=== PATIENT | female | born 1940 | race Caucasian/White ===

== ENCOUNTER 2023-04-18 20:51 | Inpatient (IN) | payer MEDICARE, BC ==
[~2023-04-18] VITALS: Ht 165.1 cm; Wt 61.3 kg
[2023-04-18] MEDS ORDERED: DEXAMETHASONE SOD PHOSPHATE 4 MG INJ IV ONE (21:15)
[2023-04-18] MEDS ORDERED: IV NORMAL SALINE 1000 ML BAG IV ONE (21:15)
[2023-04-18] MEDS ORDERED: VANCOMYCIN IV 1,000 MG in IV DEXTROSE 5% 250 ML IV ONE (21:15)
[2023-04-18] MEDS ORDERED: CEFTRIAXONE 1 G in IV DEXTROSE 5% 50 ML IV ONE (21:15)
[2023-04-18] MEDS ORDERED: VANCOMYCIN IV 200 ML ONE (21:23)
[2023-04-18] MEDS ORDERED: DEXAMETHASONE SOD PHOSPHATE 4 MG INJ ONE (21:23)
[2023-04-18] MEDS ORDERED: CEFTRIAXONE /D5W 50ML IVPB **ER PYXIS IV ONE (21:23)
[2023-04-18 22:09] LABS: BASOPHILS # (AUTO) 0.1 K/UL (0.0-0.2); DIFFERENTIAL COMMENT 0; RED CELL DISTRIBUTION WIDTH 13.3 % (12.3-17.7)
[2023-04-18 22:14] LABS: BASOPHILS % (AUTO) 0.1 % (0.0-2.0); HEMOGLOBIN 11.1 g/dL (10.9-14.3); LYMPHOCYTES # (AUTO) 0.6 K/uL (0.8-4.8); LYMPHOCYTES % (AUTO) 1.1 % (20.5-51.5); MEAN CORPUSCULAR HEMOGLOBIN 29.8 uug (24.7-32.8); MEAN CORPUSCULAR HGB CONC 33 g/dL (32.3-35.6); MEAN CORPUSCULAR VOLUME 91.3 fL (75.5-95.3); MONOCYTES # (AUTO) 0.5 K/uL (0.1-1.30); MONOCYTES % (AUTO) 0.9 % (0.0-11.0); NEUTROPHILS # (AUTO) 54.8 K/uL (1.8-8.9); NEUTROPHILS % (AUTO) 97.9 % (38.5-71.5); PLATELET COUNT (AUTO) 322 K/uL (179-408); RED BLOOD CELL COUNT(AUTO) 3.73 MIL/uL (3.63-4.92)
[2023-04-18 22:25] LABS: ALANINE AMINOTRANSFERASE 16 U/L (14-59); ALKALINE PHOSPHATASE 140 U/L (50-136); ASPARTATE AMINOTRANSFERASE 21 U/L (15-37); BILIRUBIN,DIRECT 0.4 mg/dL (0.0-0.2); BILIRUBIN,TOTAL 0.7 mg/dL (0.2-1.0); CALCIUM 9.7 mg/dL (8.5-10.1); CARBON DIOXIDE 24 mmol/L (21-32); CHLORIDE 97 mmol/L (98-107); CREATININE 5.9 mg/dL (0.6-1.3); NT-PRO BNP 1924 pg/mL (0-125); POTASSIUM 5.2 mmol/L (3.5-5.1); SODIUM SERUM 133 mmol/L (136-145); TOTAL PROTEIN, SERUM 7.1 g/dL (6.4-8.2)
[2023-04-18] MEDS ORDERED: INSULIN REGULAR, HUMAN 300 UNIT/3 ML VIAL IV ONE (23:30)
[2023-04-18] MEDS ORDERED: SODIUM BICARBONATE 8.4% 50 MEQ/50 ML DISP.SYRIN IV ONE ×2 (23:30→23:31)
[2023-04-18] MEDS ORDERED: DEXTROSE 50% 50 ML DISP.SYRIN IV ONE (23:30)
[2023-04-18] MEDS ORDERED: INSULIN REGULAR, HUMAN 300 UNIT/3 ML VIAL ONE (23:31)
[2023-04-18] MEDS ORDERED: DEXTROSE 50% 50 ML DISP.SYRIN ONE (23:33)
[2023-04-18 23:37] LABS: LYMPHOCYTES % (MANUAL) 1 % (20-40); NEUTROPHILS % (MANUAL) 98 % (42-75); PROMYELOCYTES % 1 %
[2023-04-18 23:38] LABS: ANISOCYTOSIS 1+; PLATELET ESTIMATE ADEQUATE
[2023-04-19 00:08] LABS: *BILIRUBIN,URIN NEGATIVE (NEGATIVE); *BLOOD, URINE 3+ (NEGATIVE); *CLARITY,URINE TURBID (CLEAR); *COLOR,URINE YELLOW (YELLOW); *KETONES,URINE TRACE (NEGATIVE); *PROTEIN,URINE 2+ (NEGATIVE); *UROBILINOGEN,URINE 0.2 E.U./dl (NORMAL); LEUKOCYTE ESTERASE ,URINE 3+ (NEGATIVE); NITRITE, URINE NEGATIVE (NEGATIVE); PH,URINE 5.5 (5.0-8.0); UGLUCOSE NEGATIVE (NEGATIVE)
[2023-04-19] MEDS ORDERED: PRED15SO24 PO (00:09)
[2023-04-19] MEDS ORDERED: PRAV10TA40 PO (00:09)
[2023-04-19] MEDS ORDERED: METO25TA3 PO (00:09)
[2023-04-19] MEDS ORDERED: AMLO1CAP5 PO (00:09)
[2023-04-19] MEDS ORDERED: OXYB5TAB16 PO (00:09)
[2023-04-19] MEDS ORDERED: hydrALAZINE HCL 20 MG/1 ML VIAL IV PRN (00:15)
[2023-04-19] MEDS ORDERED: DEXTROSE 50% 50 ML DISP.SYRIN IV PRN (00:15)
[2023-04-19] MEDS ORDERED: MORPHINE SULFATE 2 MG/1 ML DISP.SYRIN IVP PRN (00:15)
[2023-04-19] MEDS ORDERED: ONDANSETRON 4 MG/2 ML VIAL IV PRN (00:15)
[2023-04-19 00:22] LABS: BACTERIA,URINE MANY /HPF (NONE SEEN); RBC,URINE TNTC /HPF (0-3); WBC,URINE TNTC /HPF (0-3)
[2023-04-19 00:23] LABS: SQUAMOUS EPITHELIAL CELL,UR MODERATE /HPF (NONE SEEN)
[2023-04-19] MEDS ORDERED: DEXTROSE 50% 50 ML DISP.SYRIN ONE (02:24)
[2023-04-19] MEDS ORDERED: DEXTROSE 50% 50 ML DISP.SYRIN IV ONE (02:30)
[2023-04-19 04:50] VITALS: BP 126/68; TEMP 98.4; O2SAT 96
[2023-04-19] MEDS ORDERED: CEFEPIME HCL 2 G in IV DEXTROSE 5% 100 ML IV SCH (06:00)
[2023-04-19] MEDS: BLOOD SUGAR DIAGNOSTIC 1 EACH STRIP VI SCH ×4 (06:43→21:45)
[2023-04-19 08:00] VITALS: BP 114/64; TEMP 97.8; O2SAT 96
[2023-04-19] MEDS: HEPARIN SODIUM,PORCINE 5,000 UNITS/ML VIAL SQ SCH ×2 (09:00→18:50)
[2023-04-19 12:00] VITALS: BP 96/49; TEMP 98.1; O2SAT 98
[2023-04-19] MEDS: CEFEPIME HCL 1 G in IV DEXTROSE 5% 50 ML IV SCH (12:07)
[2023-04-19 12:50] LABS: BASOPHILS # (AUTO) 0.1 K/UL (0.0-0.2); BASOPHILS % (AUTO) 0.2 % (0.0-2.0); HEMATOCRIT 33.2 % (31.2-41.9); HEMOGLOBIN 10.8 g/dL (10.9-14.3); LYMPHOCYTES # (AUTO) 0.5 K/uL (0.8-4.8); LYMPHOCYTES % (AUTO) 0.7 % (20.5-51.5); MEAN CORPUSCULAR HEMOGLOBIN 29.4 uug (24.7-32.8); MEAN CORPUSCULAR HGB CONC 33 g/dL (32.3-35.6); MEAN CORPUSCULAR VOLUME 90.1 fL (75.5-95.3); MONOCYTES # (AUTO) 0.3 K/uL (0.1-1.30); MONOCYTES % (AUTO) 0.5 % (0.0-11.0); NEUTROPHILS # (AUTO) 62.8 K/uL (1.8-8.9); NEUTROPHILS % (AUTO) 98.6 % (38.5-71.5); PLATELET COUNT (AUTO) 287 K/uL (179-408); RED BLOOD CELL COUNT(AUTO) 3.69 MIL/uL (3.63-4.92); RED CELL DISTRIBUTION WIDTH 13.4 % (12.3-17.7)
[2023-04-19 13:10] LABS: ALANINE AMINOTRANSFERASE 13 U/L (14-59); ALBUMIN 1.7 g/dL (3.4-5.0); ALKALINE PHOSPHATASE 132 U/L (50-136); ASPARTATE AMINOTRANSFERASE 18 U/L (15-37); BILIRUBIN,TOTAL 0.6 mg/dL (0.2-1.0); CALCIUM 9.2 mg/dL (8.5-10.1); CARBON DIOXIDE 22 mmol/L (21-32); CHLORIDE 97 mmol/L (98-107); CREATININE 5.7 mg/dL (0.6-1.3); GLUCOSE 136 mg/dL (74-106); MAGNESIUM 2.5 mg/dL (1.8-2.4); PHOSPHOROUS 4.7 mg/dL (2.5-4.9); POTASSIUM 5.5 mmol/L (3.5-5.1); SODIUM SERUM 132 mmol/L (136-145); TOTAL PROTEIN, SERUM 6.7 g/dL (6.4-8.2)
[2023-04-19 13:18] LABS: UREA NITROGEN, BLOOD 82 mg/dL (7-18)
[2023-04-19] MEDS ORDERED: IV NS 1000 ML 1,000 ML IV PRN (13:30)
[2023-04-19 13:36] LABS: CHOLESTEROL 91 mg/dL (<200); HDL CHOLESTEROL 14 mg/dL (40-60); TRIGLYCERIDES 77 MG/DL (30-150)
[2023-04-19] MEDS ORDERED: SODIUM BICARBONATE 8.4% 100 MEQ in IV D5 1/2 NS 1000 ML 1,000 ML IV PRN (13:45)
[2023-04-19] MEDS ORDERED: SODIUM POLYSTYRENE SULFONATE 15 G/60 ML LIQUID UDC PO ONE (13:45)
[2023-04-19 14:17] LABS: DIFFERENTIAL COMMENT 1
[2023-04-19 14:19] LABS: WHITE BLOOD COUNT (AUTO) 63.7 K/uL (3.8-11.8)
[2023-04-19 16:00] VITALS: BP 105/66; TEMP 97.9; O2SAT 95
[2023-04-19 17:40] LABS: CALCIUM 9.1 mg/dL (8.5-10.1); CARBON DIOXIDE 21 mmol/L (21-32); CHLORIDE 98 mmol/L (98-107); CREATININE 5.5 mg/dL (0.6-1.3); GLUCOSE 145 mg/dL (74-106); SODIUM SERUM 131 mmol/L (136-145)
[2023-04-19 17:44] LABS: UREA NITROGEN, BLOOD 85 mg/dL (7-18)
[2023-04-19 18:48] LABS: BAND % (MANUAL) 15 % (0-10); NEUTROPHILS % (MANUAL) 83 % (42-75)
[2023-04-19 18:49] LABS: LYMPHOCYTES % (MANUAL) 1 % (20-40); MONOCYTES % (MANUAL) 1 % (2-10); PLATELET ESTIMATE ADEQUATE
[2023-04-19 20:00] VITALS: BP 112/60; TEMP 97.9
[2023-04-19] MEDS: INSULIN REGULAR, HUMAN 300 UNIT/3 ML VIAL SQ PRN (22:38)
[2023-04-20] VITALS: BP 122/59; TEMP 98.1
[2023-04-20 04:00] VITALS: BP 117/62; TEMP 97.9
[2023-04-20 06:35] LABS: BASOPHILS % (AUTO) 0.1 % (0.0-2.0); HEMATOCRIT 31.3 % (31.2-41.9); HEMOGLOBIN 10.5 g/dL (10.9-14.3); LYMPHOCYTES # (AUTO) 0.5 K/uL (0.8-4.8); LYMPHOCYTES % (AUTO) 1.2 % (20.5-51.5); MEAN CORPUSCULAR HEMOGLOBIN 30.2 uug (24.7-32.8); MEAN CORPUSCULAR HGB CONC 34 g/dL (32.3-35.6); MEAN CORPUSCULAR VOLUME 89.8 fL (75.5-95.3); MONOCYTES # (AUTO) 0.6 K/uL (0.1-1.30); MONOCYTES % (AUTO) 1.7 % (0.0-11.0); NEUTROPHILS # (AUTO) 36.8 K/uL (1.8-8.9); PLATELET COUNT (AUTO) 247 K/uL (179-408); RED BLOOD CELL COUNT(AUTO) 3.48 MIL/uL (3.63-4.92); RED CELL DISTRIBUTION WIDTH 13.3 % (12.3-17.7)
[2023-04-20] MEDS: BLOOD SUGAR DIAGNOSTIC 1 EACH STRIP VI SCH ×2 (06:52→12:38)
[2023-04-20 06:59] LABS: DIFFERENTIAL COMMENT 1
[2023-04-20 07:00] LABS: WHITE BLOOD COUNT (AUTO) 37.9 K/uL (3.8-11.8)
[2023-04-20 07:04] LABS: ALANINE AMINOTRANSFERASE 16 U/L (14-59); ALBUMIN 1.5 g/dL (3.4-5.0); ALKALINE PHOSPHATASE 123 U/L (50-136); ASPARTATE AMINOTRANSFERASE 24 U/L (15-37); BILIRUBIN,TOTAL 0.3 mg/dL (0.2-1.0); CALCIUM 9.2 mg/dL (8.5-10.1); CARBON DIOXIDE 25 mmol/L (21-32); CHLORIDE 100 mmol/L (98-107); CREATINE KINASE, TOTAL 18 U/L (26-192); CREATININE 3.6 mg/dL (0.6-1.3); GLUCOSE 211 mg/dL (74-106); MAGNESIUM 2.6 mg/dL (1.8-2.4); PHOSPHOROUS 4.5 mg/dL (2.5-4.9); POTASSIUM 4.4 mmol/L (3.5-5.1); SODIUM SERUM 135 mmol/L (136-145); TOTAL PROTEIN, SERUM 6.4 g/dL (6.4-8.2); UREA NITROGEN, BLOOD 72 mg/dL (7-18); VANCOMYCIN,RANDOM 13.8 ug/mL (20.0-30.0)
[2023-04-20] MEDS: HEPARIN SODIUM,PORCINE 5,000 UNITS/ML VIAL SQ SCH ×2 (08:37→16:34)
[2023-04-20] MEDS: CEFEPIME HCL 1 G in IV DEXTROSE 5% 50 ML IV SCH (08:38)
[2023-04-20] MEDS: INSULIN REGULAR, HUMAN 300 UNIT/3 ML VIAL SQ PRN ×2 (08:53→12:39)
[2023-04-20] MEDS: PROTEIN SUPPLEMENT (PROSTAT) 30 ML LIQUID PO SCH (09:45)
[2023-04-20] MEDS ORDERED: PRED-170 PO (11:02)
[2023-04-20] MEDS ORDERED: EMPA25TA PO (11:02)
[2023-04-20] MEDS ORDERED: OXYB15TA19 PO (11:02)
[2023-04-20] MEDS ORDERED: GLIM1TAB18 PO (11:02)
[2023-04-20] MEDS ORDERED: PRAV40TA3 PO (11:02)
[2023-04-20] MEDS ORDERED: IRBE1TAB31 PO (11:02)
[2023-04-20] MEDS ORDERED: METO-356 PO (11:02)
[2023-04-20] MEDS ORDERED: AMLO2.5T4 PO (11:02)
[2023-04-20 11:30] VITALS: BP 107/49; TEMP 98.6; O2SAT 96
[2023-04-20 12:39] LABS: PLATELET ESTIMATE ADEQUATE
[2023-04-20 12:42] LABS: BAND % (MANUAL) 2 % (0-10); LYMPHOCYTES % (MANUAL) 4 % (20-40); MONOCYTES % (MANUAL) 3 % (2-10); NEUTROPHILS % (MANUAL) 91 % (42-75)
[2023-04-20] MEDS: IV NS 1000 ML 1,000 ML IV PRN (13:18)
[2023-04-20 16:44] VITALS: BP 126/90; TEMP 98.3; O2SAT 95
[2023-04-20 22:00] VITALS: BP 138/73; TEMP 98.5; O2SAT 94
[2023-04-21] MEDS: IV NS 1000 ML 1,000 ML IV PRN (01:16)
[2023-04-21 04:10] VITALS: BP 124/59; TEMP 98.4; O2SAT 94
[2023-04-21 06:37] LABS: BASOPHILS % (AUTO) 0.1 % (0.0-2.0); HEMATOCRIT 33.2 % (31.2-41.9); LYMPHOCYTES # (AUTO) 0.9 K/uL (0.8-4.8); LYMPHOCYTES % (AUTO) 3.4 % (20.5-51.5); MEAN CORPUSCULAR HEMOGLOBIN 29.9 uug (24.7-32.8); MEAN CORPUSCULAR HGB CONC 33 g/dL (32.3-35.6); MEAN CORPUSCULAR VOLUME 90.4 fL (75.5-95.3); MONOCYTES # (AUTO) 1.3 K/uL (0.1-1.30); MONOCYTES % (AUTO) 4.8 % (0.0-11.0); NEUTROPHILS # (AUTO) 24.7 K/uL (1.8-8.9); NEUTROPHILS % (AUTO) 91.7 % (38.5-71.5); PLATELET COUNT (AUTO) 234 K/uL (179-408); RED BLOOD CELL COUNT(AUTO) 3.67 MIL/uL (3.63-4.92); RED CELL DISTRIBUTION WIDTH 13.1 % (12.3-17.7)
[2023-04-21 06:47] LABS: DIFFERENTIAL COMMENT 1
[2023-04-21 07:24] LABS: CALCIUM 9.2 mg/dL (8.5-10.1); CARBON DIOXIDE 24 mmol/L (21-32); CHLORIDE 106 mmol/L (98-107); CREATININE 1.8 mg/dL (0.6-1.3); GLUCOSE 105 mg/dL (74-106); MAGNESIUM 2.3 mg/dL (1.8-2.4); PHOSPHOROUS 3.8 mg/dL (2.5-4.9); POTASSIUM 4.4 mmol/L (3.5-5.1); SODIUM SERUM 139 mmol/L (136-145); UREA NITROGEN, BLOOD 58 mg/dL (7-18)
[2023-04-21] MEDS: PROTEIN SUPPLEMENT (PROSTAT) 30 ML LIQUID PO SCH (08:00)
[2023-04-21] MEDS: HEPARIN SODIUM,PORCINE 5,000 UNITS/ML VIAL SQ SCH ×2 (09:10→17:10)
[2023-04-21] MEDS: CEFEPIME HCL 1 G in IV DEXTROSE 5% 50 ML IV SCH (10:24)
[2023-04-21 13:46] VITALS: BP 123/70; TEMP 97.3; O2SAT 96
[2023-04-21 15:59] VITALS: BP 132/78; TEMP 97
[2023-04-21 16:03] VITALS: BP 147/67; TEMP 98.6
[2023-04-21] MEDS ORDERED: VANCOMYCIN IV 750 MG in IV DEXTROSE 5% 250 ML IV SCH (16:30)
[2023-04-21] MEDS: GLIMEPIRIDE 2 MG TABLET PO SCH (17:06)
[2023-04-21] MEDS: METOPROLOL SUCCINATE XL 25 MG TAB.SR.24H PO SCH (17:06)
[2023-04-22 00:59] LABS: *BILIRUBIN,URIN NEGATIVE (NEGATIVE); *BLOOD, URINE 3+ (NEGATIVE); *COLOR,URINE YELLOW (YELLOW); *KETONES,URINE NEGATIVE (NEGATIVE); *PROTEIN,URINE 1+ (NEGATIVE); *UROBILINOGEN,URINE 0.2 E.U./dl (NORMAL); LEUKOCYTE ESTERASE ,URINE 3+ (NEGATIVE); NITRITE, URINE NEGATIVE (NEGATIVE)
[2023-04-22 01:06] LABS: PTH, INTACT 37 pg/mL (15-65)
[2023-04-22 01:07] LABS: *CLARITY,URINE CLOUDY (CLEAR); UGLUCOSE 1+ (NEGATIVE)
[2023-04-22 01:11] LABS: *CREATININE,URINE 43.5 mg/dL (30-125); *URINE TOTAL PROTEIN RANDOM 77.9 mg/dL (<150/24HR)
[2023-04-22 05:14] LABS: BACTERIA,URINE FEW /HPF (NONE SEEN); RBC,URINE TNTC /HPF (0-3); SQUAMOUS EPITHELIAL CELL,UR MANY /HPF (NONE SEEN); WBC,URINE TNTC /HPF (0-3); YEAST,URINE FEW /HPF (NONE SEEN)
[2023-04-22 07:28] LABS: ALANINE AMINOTRANSFERASE 26 U/L (14-59); ALKALINE PHOSPHATASE 83 U/L (50-136); ASPARTATE AMINOTRANSFERASE 19 U/L (15-37); BILIRUBIN,TOTAL 0.5 mg/dL (0.2-1.0); CALCIUM 9.2 mg/dL (8.5-10.1); CARBON DIOXIDE 23 mmol/L (21-32); CHLORIDE 108 mmol/L (98-107); CREATININE 1.3 mg/dL (0.6-1.3); GLUCOSE 91 mg/dL (74-106); PHOSPHOROUS 2.7 mg/dL (2.5-4.9); POTASSIUM 4.3 mmol/L (3.5-5.1); SODIUM SERUM 141 mmol/L (136-145); TOTAL PROTEIN, SERUM 5.7 g/dL (6.4-8.2); UREA NITROGEN, BLOOD 47 mg/dL (7-18)
[2023-04-22 07:34] LABS: ALBUMIN 1.5 g/dL (3.4-5.0); BASOPHILS % (AUTO) 0.1 % (0.0-2.0); EOSINOPHILS # (AUTO) 0.1 K/uL (0.0-0.7); EOSINOPHILS % (AUTO) 0.4 % (0.0-7.0); HEMATOCRIT 33.9 % (31.2-41.9); LYMPHOCYTES # (AUTO) 1.1 K/uL (0.8-4.8); LYMPHOCYTES % (AUTO) 4.4 % (20.5-51.5); MEAN CORPUSCULAR HEMOGLOBIN 29.7 uug (24.7-32.8); MEAN CORPUSCULAR HGB CONC 33 g/dL (32.3-35.6); MEAN CORPUSCULAR VOLUME 91.3 fL (75.5-95.3); MONOCYTES # (AUTO) 1.2 K/uL (0.1-1.30); MONOCYTES % (AUTO) 4.8 % (0.0-11.0); NEUTROPHILS # (AUTO) 21.9 K/uL (1.8-8.9); NEUTROPHILS % (AUTO) 90.3 % (38.5-71.5); PLATELET COUNT (AUTO) 232 K/uL (179-408); RED BLOOD CELL COUNT(AUTO) 3.72 MIL/uL (3.63-4.92); RED CELL DISTRIBUTION WIDTH 13.1 % (12.3-17.7); WHITE BLOOD COUNT (AUTO) 24.2 K/uL (3.8-11.8)
[2023-04-22 07:38] LABS: DIFFERENTIAL COMMENT 1
[2023-04-22] MEDS: PROTEIN SUPPLEMENT (PROSTAT) 30 ML LIQUID PO SCH (08:00)
[2023-04-22] MEDS: METOPROLOL SUCCINATE XL 25 MG TAB.SR.24H PO SCH (09:28)
[2023-04-22] MEDS: GLIMEPIRIDE 2 MG TABLET PO SCH (09:29)
[2023-04-22] MEDS: OXYBUTYNIN XL 5 MG TABSR PO SCH (09:31)
[2023-04-22] MEDS: HEPARIN SODIUM,PORCINE 5,000 UNITS/ML VIAL SQ SCH ×2 (09:34→16:58)
[2023-04-22] MEDS: CEFEPIME HCL 1 G in IV DEXTROSE 5% 50 ML IV SCH (09:35)
[2023-04-22] MEDS: NEPRO (VANILLA) 237 ML CAN PO SCH (09:36)
[2023-04-22] MEDS: IV NS 1000 ML 1,000 ML IV PRN (09:37)
[2023-04-22 12:06] VITALS: BP 155/63; TEMP 98.4; O2SAT 97
[2023-04-22 14:06] LABS: A/G RATIO 0.5 (0.7-1.7); ALBUMIN 1.9 g/dL (2.9-4.4); ALPHA-1-GLOBULIN 0.5 g/dL (0.0-0.4); ALPHA-2-GLOBULIN 1.2 g/dL (0.4-1.0); BETA GLOBULIN 1.1 g/dL (0.7-1.3); GAMMA GLOBULIN 0.9 g/dL (0.4-1.8); GLOBULIN, TOTAL 3.7 g/dL (2.2-3.9); M-SPIKE Not Observed g/dL (Not Observed)
[2023-04-22 16:00] VITALS: BP 142/79; TEMP 97.9; O2SAT 99
[2023-04-22 20:00] VITALS: BP 134/78; TEMP 98.6; O2SAT 95
[2023-04-23 04:00] VITALS: BP 131/73; TEMP 98.5; O2SAT 97
[2023-04-23] MEDS: IV NS 1000 ML 1,000 ML IV PRN ×2 (04:37→21:26)
[2023-04-23 06:59] LABS: BASOPHILS % (AUTO) 0.1 % (0.0-2.0); DIFFERENTIAL COMMENT 0; EOSINOPHILS # (AUTO) 0.1 K/uL (0.0-0.7); EOSINOPHILS % (AUTO) 0.2 % (0.0-7.0); HEMATOCRIT 34.7 % (31.2-41.9); HEMOGLOBIN 11.2 g/dL (10.9-14.3); LYMPHOCYTES # (AUTO) 1.2 K/uL (0.8-4.8); LYMPHOCYTES % (AUTO) 3.3 % (20.5-51.5); MEAN CORPUSCULAR HEMOGLOBIN 29.7 uug (24.7-32.8); MEAN CORPUSCULAR HGB CONC 32 g/dL (32.3-35.6); MEAN CORPUSCULAR VOLUME 91.6 fL (75.5-95.3); MONOCYTES # (AUTO) 0.8 K/uL (0.1-1.30); MONOCYTES % (AUTO) 2.2 % (0.0-11.0); NEUTROPHILS # (AUTO) 32.5 K/uL (1.8-8.9); NEUTROPHILS % (AUTO) 94.2 % (38.5-71.5); PLATELET COUNT (AUTO) 259 K/uL (179-408); RED BLOOD CELL COUNT(AUTO) 3.79 MIL/uL (3.63-4.92); RED CELL DISTRIBUTION WIDTH 13.1 % (12.3-17.7)
[2023-04-23 07:30] LABS: CALCIUM 8.6 mg/dL (8.5-10.1); CARBON DIOXIDE 21 mmol/L (21-32); CHLORIDE 108 mmol/L (98-107); CREATININE 1.7 mg/dL (0.6-1.3); GLUCOSE 58 mg/dL (74-106); POTASSIUM 4.6 mmol/L (3.5-5.1); SODIUM SERUM 141 mmol/L (136-145); UREA NITROGEN, BLOOD 47 mg/dL (7-18)
[2023-04-23 07:56] LABS: WHITE BLOOD COUNT (AUTO) 34.5 K/uL (3.8-11.8)
[2023-04-23] MEDS: OXYBUTYNIN XL 5 MG TABSR PO SCH (10:31)
[2023-04-23] MEDS: NEPRO (VANILLA) 237 ML CAN PO SCH (10:32)
[2023-04-23] MEDS: GLIMEPIRIDE 2 MG TABLET PO SCH (10:32)
[2023-04-23] MEDS: METOPROLOL SUCCINATE XL 25 MG TAB.SR.24H PO SCH (10:32)
[2023-04-23] MEDS: HEPARIN SODIUM,PORCINE 5,000 UNITS/ML VIAL SQ SCH ×2 (10:33→21:20)
[2023-04-23] MEDS: PROTEIN SUPPLEMENT (PROSTAT) 30 ML LIQUID PO SCH (10:34)
[2023-04-23] MEDS: CEFEPIME HCL 1 G in IV DEXTROSE 5% 50 ML IV SCH (10:35)
[2023-04-23 10:38] VITALS: BP 122/61; TEMP 98.4; O2SAT 95
[2023-04-23] MEDS ORDERED: FLUCONAZOLE 200 MG/NS 100ML IV 200 MG in PREMIXED 1 EACH IV SCH (11:00)
[2023-04-23 11:56] VITALS: BP 112/64; TEMP 97.8; O2SAT 96
[2023-04-23] MEDS ORDERED: FLUCONAZOLE 200 MG/NS 100ML IV 100 MG in PREMIXED 1 EACH IV SCH (12:00)
[2023-04-23 14:00] LABS: BAND % (MANUAL) 9 % (0-10); LYMPHOCYTES % (MANUAL) 5 % (20-40); METAMYELOCYTES % 2 % (0-1); MONOCYTES % (MANUAL) 3 % (2-10); NEUTROPHILS % (MANUAL) 81 % (42-75); PLATELET ESTIMATE ADEQUATE
[2023-04-23 14:01] LABS: ANISOCYTOSIS 1+
[2023-04-23 16:01] VITALS: BP 111/51; TEMP 98.5; O2SAT 96
[2023-04-23 19:15] VITALS: BP 123/50; TEMP 97.9; O2SAT 94
[2023-04-24] MEDS: ACETAMINOPHEN 325 MG TABLET PO PRN (03:48)
[2023-04-24 06:44] VITALS: BP 126/43; TEMP 98.4; O2SAT 95
[2023-04-24 07:47] LABS: BASOPHILS % (AUTO) 0.1 % (0.0-2.0); EOSINOPHILS # (AUTO) 0.1 K/uL (0.0-0.7); EOSINOPHILS % (AUTO) 0.2 % (0.0-7.0); HEMATOCRIT 32.9 % (31.2-41.9); HEMOGLOBIN 10.6 g/dL (10.9-14.3); LYMPHOCYTES # (AUTO) 1.1 K/uL (0.8-4.8); LYMPHOCYTES % (AUTO) 2.8 % (20.5-51.5); MEAN CORPUSCULAR HEMOGLOBIN 29.7 uug (24.7-32.8); MEAN CORPUSCULAR HGB CONC 32 g/dL (32.3-35.6); MEAN CORPUSCULAR VOLUME 92.2 fL (75.5-95.3); MONOCYTES # (AUTO) 1.3 K/uL (0.1-1.30); MONOCYTES % (AUTO) 3.3 % (0.0-11.0); NEUTROPHILS # (AUTO) 35.6 K/uL (1.8-8.9); NEUTROPHILS % (AUTO) 93.6 % (38.5-71.5); PLATELET COUNT (AUTO) 286 K/uL (179-408); RED BLOOD CELL COUNT(AUTO) 3.57 MIL/uL (3.63-4.92); RED CELL DISTRIBUTION WIDTH 13.5 % (12.3-17.7)
[2023-04-24 08:34] LABS: CALCIUM 8.6 mg/dL (8.5-10.1); CARBON DIOXIDE 20 mmol/L (21-32); CHLORIDE 108 mmol/L (98-107); CREATININE 2.1 mg/dL (0.6-1.3); POTASSIUM 4.5 mmol/L (3.5-5.1); SODIUM SERUM 141 mmol/L (136-145); UREA NITROGEN, BLOOD 50 mg/dL (7-18)
[2023-04-24 09:07] LABS: DIFFERENTIAL COMMENT 1
[2023-04-24 09:08] LABS: GLUCOSE 36 mg/dL (74-106)
[2023-04-24] MEDS: GLIMEPIRIDE 2 MG TABLET PO SCH (09:11)
[2023-04-24] MEDS: METOPROLOL SUCCINATE XL 25 MG TAB.SR.24H PO SCH (09:12)
[2023-04-24] MEDS: FLUCONAZOLE 100 MG TABLET PO SCH (09:12)
[2023-04-24] MEDS: OXYBUTYNIN XL 5 MG TABSR PO SCH (09:13)
[2023-04-24] MEDS: HEPARIN SODIUM,PORCINE 5,000 UNITS/ML VIAL SQ SCH ×2 (09:16→21:23)
[2023-04-24] MEDS: NEPRO (VANILLA) 237 ML CAN PO SCH (09:17)
[2023-04-24] MEDS: CEFEPIME HCL 1 G in IV DEXTROSE 5% 50 ML IV SCH (09:27)
[2023-04-24] MEDS: IV NS 1000 ML 1,000 ML IV PRN ×2 (09:29→17:59)
[2023-04-24] MEDS: PROTEIN SUPPLEMENT (PROSTAT) 30 ML LIQUID PO SCH (09:30)
[2023-04-24 11:30] VITALS: BP_SYST 110; BP_SYST 119; BP_DIAS 52; BP_DIAS 53; TEMP 97.9; TEMP 98.1; O2SAT 97; O2SAT 98
[2023-04-24 15:37] VITALS: BP 121/52; TEMP 98.7; O2SAT 97
[2023-04-24 15:38] LABS: IRON, SERUM 13 ug/dL (50-175)
[2023-04-24 16:00] LABS: FERRITIN 1342 ng/mL (8-252)
[2023-04-24] MEDS ORDERED: VANCOMYCIN IV 1,000 MG in IV DEXTROSE 5% 250 ML IV ONE (18:00)
[2023-04-24 20:00] LABS: *BILIRUBIN,URIN NEGATIVE (NEGATIVE); *BLOOD, URINE 3+ (NEGATIVE); *CLARITY,URINE CLOUDY (CLEAR); *COLOR,URINE YELLOW (YELLOW); *KETONES,URINE 1+ (NEGATIVE); *PROTEIN,URINE 2+ (NEGATIVE); *UROBILINOGEN,URINE 0.2 E.U./dl (NORMAL); LEUKOCYTE ESTERASE ,URINE 1+ (NEGATIVE); NITRITE, URINE NEGATIVE (NEGATIVE); PH,URINE 5.5 (5.0-8.0); UGLUCOSE TRACE (NEGATIVE)
[2023-04-24 20:01] LABS: *CREATININE,URINE 56.3 mg/dL (30-125); *URINE TOTAL PROTEIN RANDOM 106.7 mg/dL (<150/24HR)
[2023-04-24 21:33] VITALS: BP 139/63; TEMP 98.2; O2SAT 99
[2023-04-24 21:47] LABS: RBC,URINE 50-80 /HPF (0-3); SQUAMOUS EPITHELIAL CELL,UR FEW /HPF (NONE SEEN)
[2023-04-24 21:57] LABS: BACTERIA,URINE FEW /HPF (NONE SEEN); WBC,URINE 20-50 /HPF (0-3)
[2023-04-25 04:45] VITALS: BP 121/62; TEMP 98.6; O2SAT 100
[2023-04-25 07:34] LABS: BASOPHILS % (AUTO) 0.1 % (0.0-2.0); EOSINOPHILS # (AUTO) 0.1 K/uL (0.0-0.7); EOSINOPHILS % (AUTO) 0.5 % (0.0-7.0); HEMOGLOBIN 9.4 g/dL (10.9-14.3); LYMPHOCYTES # (AUTO) 1.4 K/uL (0.8-4.8); MEAN CORPUSCULAR HEMOGLOBIN 29.9 uug (24.7-32.8); MEAN CORPUSCULAR HGB CONC 33 g/dL (32.3-35.6); MEAN CORPUSCULAR VOLUME 91.8 fL (75.5-95.3); MONOCYTES # (AUTO) 1.2 K/uL (0.1-1.30); MONOCYTES % (AUTO) 4.1 % (0.0-11.0); NEUTROPHILS # (AUTO) 25.6 K/uL (1.8-8.9); NEUTROPHILS % (AUTO) 90.3 % (38.5-71.5); PLATELET COUNT (AUTO) 296 K/uL (179-408); RED BLOOD CELL COUNT(AUTO) 3.15 MIL/uL (3.63-4.92); RED CELL DISTRIBUTION WIDTH 13.4 % (12.3-17.7); WHITE BLOOD COUNT (AUTO) 28.3 K/uL (3.8-11.8)
[2023-04-25 07:41] LABS: DIFFERENTIAL COMMENT 1
[2023-04-25] MEDS: PROTEIN SUPPLEMENT (PROSTAT) 30 ML LIQUID PO SCH (08:00)
[2023-04-25 08:19] LABS: CALCIUM 8.4 mg/dL (8.5-10.1); CARBON DIOXIDE 18 mmol/L (21-32); CHLORIDE 111 mmol/L (98-107); CREATININE 1.1 mg/dL (0.6-1.3); MAGNESIUM 1.9 mg/dL (1.8-2.4); PHOSPHOROUS 3.1 mg/dL (2.5-4.9); SODIUM SERUM 143 mmol/L (136-145); UREA NITROGEN, BLOOD 35 mg/dL (7-18)
[2023-04-25 08:35] LABS: GLUCOSE 17 mg/dL (74-106)
[2023-04-25 08:42] LABS: POTASSIUM 4.2 mmol/L (3.5-5.1)
[2023-04-25] MEDS: GLIMEPIRIDE 2 MG TABLET PO SCH (09:00)
[2023-04-25] MEDS ORDERED: VANCOMYCIN IV 750 MG in IV DEXTROSE 5% 250 ML IV ONE (09:00)
[2023-04-25] MEDS: NEPRO (VANILLA) 237 ML CAN PO SCH (09:00)
[2023-04-25] MEDS ORDERED: DEXTROSE 50% 50 ML DISP.SYRIN IV ONE (09:00)
[2023-04-25] MEDS: OXYBUTYNIN XL 5 MG TABSR PO SCH (10:12)
[2023-04-25] MEDS: FLUCONAZOLE 100 MG TABLET PO SCH (10:12)
[2023-04-25] MEDS: HEPARIN SODIUM,PORCINE 5,000 UNITS/ML VIAL SQ SCH ×2 (10:15→21:06)
[2023-04-25] MEDS: IV D5/ 0.9% NACL 1,000 ML IV PRN (10:33)
[2023-04-25] MEDS ORDERED: DIATR MEGLU/DIATRIZOATE SODIUM 30 ML BOTTLE ONE (10:38)
[2023-04-25 12:00] VITALS: TEMP 97.6
[2023-04-25 12:07] LABS: FREE KAPPA LT CHAINS SERUM 105.7 mg/L (3.3-19.4); KAPPA/LAMBDA RATIO SERUM 1.49 (0.26-1.65)
[2023-04-25] MEDS: BLOOD SUGAR DIAGNOSTIC 1 EACH STRIP VI SCH ×3 (13:04→23:38)
[2023-04-25] MEDS: CEFEPIME HCL 1 G in IV DEXTROSE 5% 50 ML IV SCH (13:14)
[2023-04-25] MEDS: METOPROLOL SUCCINATE XL 25 MG TAB.SR.24H PO SCH (13:15)
[2023-04-25 16:09] VITALS: TEMP 97.2
[2023-04-25 20:26] VITALS: BP 108/65; TEMP 98.6; O2SAT 99
[2023-04-25] MEDS: MEROPENEM 1 G in IV NORMAL SALINE 100 ML IV SCH (21:06)
[2023-04-26 00:09] LABS: FOLATE (FOLIC ACID), SERUM 16.1 ng/mL (>3.0)
[2023-04-26 01:09] LABS: CANCER ANTIGEN 15-3 30.2 U/mL (0.0-25.0); CARCINOEMBRYONIC AG (CEA) 3.7 ng/mL (0.0-4.7)
[2023-04-26] MEDS: IV D5/ 0.9% NACL 1,000 ML IV PRN ×2 (03:07→17:42)
[2023-04-26 04:55] VITALS: BP 98/53; TEMP 97.9; O2SAT 95
[2023-04-26 06:41] LABS: CALCIUM 8.2 mg/dL (8.5-10.1); CARBON DIOXIDE 17 mmol/L (21-32); CHLORIDE 111 mmol/L (98-107); GLUCOSE 131 mg/dL (74-106); POTASSIUM 3.7 mmol/L (3.5-5.1); SODIUM SERUM 141 mmol/L (136-145); UREA NITROGEN, BLOOD 26 mg/dL (7-18)
[2023-04-26] MEDS: BLOOD SUGAR DIAGNOSTIC 1 EACH STRIP VI SCH ×3 (06:56→18:34)
[2023-04-26 08:00] VITALS: BP 104/57; TEMP 98; O2SAT 96
[2023-04-26] MEDS: PROTEIN SUPPLEMENT (PROSTAT) 30 ML LIQUID PO SCH (08:32)
[2023-04-26] MEDS: MEROPENEM 1 G in IV NORMAL SALINE 100 ML IV SCH ×2 (08:33→22:34)
[2023-04-26] MEDS: OXYBUTYNIN XL 5 MG TABSR PO SCH (08:33)
[2023-04-26] MEDS: METOPROLOL SUCCINATE XL 25 MG TAB.SR.24H PO SCH (08:39)
[2023-04-26] MEDS: GLIMEPIRIDE 2 MG TABLET PO SCH (08:40)
[2023-04-26] MEDS: FLUCONAZOLE 100 MG TABLET PO SCH (08:40)
[2023-04-26] MEDS: HEPARIN SODIUM,PORCINE 5,000 UNITS/ML VIAL SQ SCH ×2 (08:40→22:40)
[2023-04-26] MEDS: NEPRO (VANILLA) 237 ML CAN PO SCH (08:41)
[2023-04-26 12:07] VITALS: BP 118/51; TEMP 98.2; O2SAT 96
[2023-04-26 13:21] LABS: BASOPHILS # (AUTO) 0.1 K/UL (0.0-0.2); BASOPHILS % (AUTO) 0.4 % (0.0-2.0); EOSINOPHILS % (AUTO) 0.1 % (0.0-7.0); HEMOGLOBIN 9.9 g/dL (10.9-14.3); LYMPHOCYTES # (AUTO) 0.9 K/uL (0.8-4.8); LYMPHOCYTES % (AUTO) 3.4 % (20.5-51.5); MEAN CORPUSCULAR HEMOGLOBIN 29.6 uug (24.7-32.8); MEAN CORPUSCULAR HGB CONC 32 g/dL (32.3-35.6); MEAN CORPUSCULAR VOLUME 92.9 fL (75.5-95.3); MONOCYTES # (AUTO) 1.2 K/uL (0.1-1.30); MONOCYTES % (AUTO) 4.6 % (0.0-11.0); NEUTROPHILS # (AUTO) 25.1 K/uL (1.8-8.9); NEUTROPHILS % (AUTO) 91.5 % (38.5-71.5); PLATELET COUNT (AUTO) 325 K/uL (179-408); RED BLOOD CELL COUNT(AUTO) 3.34 MIL/uL (3.63-4.92); RED CELL DISTRIBUTION WIDTH 14.2 % (12.3-17.7); WHITE BLOOD COUNT (AUTO) 27.4 K/uL (3.8-11.8)
[2023-04-26 13:37] LABS: DIFFERENTIAL COMMENT 1
[2023-04-26 15:43] VITALS: BP 123/62; TEMP 97.5; O2SAT 95
[2023-04-26 20:00] VITALS: BP 133/62; TEMP 97.8; O2SAT 98
[2023-04-27] MEDS: BLOOD SUGAR DIAGNOSTIC 1 EACH STRIP VI SCH ×4 (00:20→17:35)
[2023-04-27 04:00] VITALS: BP 136/65; TEMP 98.2; O2SAT 95
[2023-04-27 06:42] LABS: BASOPHILS # (AUTO) 0.1 K/UL (0.0-0.2); BASOPHILS % (AUTO) 0.3 % (0.0-2.0); EOSINOPHILS # (AUTO) 0.2 K/uL (0.0-0.7); EOSINOPHILS % (AUTO) 0.9 % (0.0-7.0); HEMATOCRIT 29.1 % (31.2-41.9); HEMOGLOBIN 9.5 g/dL (10.9-14.3); LYMPHOCYTES # (AUTO) 1.3 K/uL (0.8-4.8); LYMPHOCYTES % (AUTO) 5.4 % (20.5-51.5); MEAN CORPUSCULAR HGB CONC 33 g/dL (32.3-35.6); MEAN CORPUSCULAR VOLUME 91.4 fL (75.5-95.3); MONOCYTES # (AUTO) 1.8 K/uL (0.1-1.30); NEUTROPHILS # (AUTO) 21.6 K/uL (1.8-8.9); NEUTROPHILS % (AUTO) 86.4 % (38.5-71.5); PLATELET COUNT (AUTO) 353 K/uL (179-408); RED BLOOD CELL COUNT(AUTO) 3.19 MIL/uL (3.63-4.92); RED CELL DISTRIBUTION WIDTH 13.6 % (12.3-17.7)
[2023-04-27 07:09] LABS: DIFFERENTIAL COMMENT 1
[2023-04-27 07:12] LABS: CALCIUM 8.2 mg/dL (8.5-10.1); CARBON DIOXIDE 18 mmol/L (21-32); CHLORIDE 113 mmol/L (98-107); CREATININE 1.1 mg/dL (0.6-1.3); GLUCOSE 103 mg/dL (74-106); MAGNESIUM 1.7 mg/dL (1.8-2.4); PHOSPHOROUS 2.2 mg/dL (2.5-4.9); POTASSIUM 3.3 mmol/L (3.5-5.1); SODIUM SERUM 144 mmol/L (136-145); UREA NITROGEN, BLOOD 22 mg/dL (7-18)
[2023-04-27] MEDS: PROTEIN SUPPLEMENT (PROSTAT) 30 ML LIQUID PO SCH (08:00)
[2023-04-27] MEDS: OXYBUTYNIN XL 5 MG TABSR PO SCH (09:00)
[2023-04-27] MEDS: NEPRO (VANILLA) 237 ML CAN PO SCH (09:00)
[2023-04-27] MEDS: METOPROLOL SUCCINATE XL 25 MG TAB.SR.24H PO SCH (09:00)
[2023-04-27] MEDS: GLIMEPIRIDE 2 MG TABLET PO SCH (09:00)
[2023-04-27] MEDS: MEROPENEM 1 G in IV NORMAL SALINE 100 ML IV SCH ×2 (09:28→21:29)
[2023-04-27] MEDS: IV D5/ 0.9% NACL 1,000 ML IV PRN (09:29)
[2023-04-27] MEDS: HEPARIN SODIUM,PORCINE 5,000 UNITS/ML VIAL SQ SCH (09:31)
[2023-04-27] MEDS ORDERED: MAGNESIUM SULFATE/D5W 100 ML IV ONE (10:00)
[2023-04-27] MEDS: FLUCONAZOLE 100 MG TABLET PO SCH (10:02)
[2023-04-27] MEDS ORDERED: POTASSIUM PHOSPHATE MM 15 MMOL in IV NORMAL SALINE 250 ML IV ONE (11:00)
[2023-04-27 11:50] VITALS: BP 126/59; TEMP 98; O2SAT 97
[2023-04-27 16:00] VITALS: BP 140/69; TEMP 98.6; O2SAT 98
[2023-04-27 20:15] VITALS: BP 128/62; TEMP 98; O2SAT 96
[2023-04-28] MEDS: BLOOD SUGAR DIAGNOSTIC 1 EACH STRIP VI SCH ×5 (00:11→23:38)
[2023-04-28 05:45] VITALS: BP 135/74; TEMP 98.1; O2SAT 96
[2023-04-28] MEDS: PROTEIN SUPPLEMENT (PROSTAT) 30 ML LIQUID PO SCH (08:00)
[2023-04-28 08:11] LABS: BASOPHILS # (AUTO) 0.1 K/UL (0.0-0.2); BASOPHILS % (AUTO) 0.3 % (0.0-2.0); EOSINOPHILS # (AUTO) 0.1 K/uL (0.0-0.7); EOSINOPHILS % (AUTO) 0.8 % (0.0-7.0); HEMATOCRIT 26.7 % (31.2-41.9); HEMOGLOBIN 8.7 g/dL (10.9-14.3); LYMPHOCYTES # (AUTO) 1.1 K/uL (0.8-4.8); LYMPHOCYTES % (AUTO) 6.2 % (20.5-51.5); MEAN CORPUSCULAR HGB CONC 33 g/dL (32.3-35.6); MEAN CORPUSCULAR VOLUME 91.7 fL (75.5-95.3); MONOCYTES # (AUTO) 1.6 K/uL (0.1-1.30); MONOCYTES % (AUTO) 8.9 % (0.0-11.0); NEUTROPHILS # (AUTO) 15.4 K/uL (1.8-8.9); NEUTROPHILS % (AUTO) 83.8 % (38.5-71.5); PLATELET COUNT (AUTO) 332 K/uL (179-408); RED BLOOD CELL COUNT(AUTO) 2.91 MIL/uL (3.63-4.92); RED CELL DISTRIBUTION WIDTH 13.8 % (12.3-17.7); WHITE BLOOD COUNT (AUTO) 18.4 K/uL (3.8-11.8)
[2023-04-28 08:12] LABS: DIFFERENTIAL COMMENT 1
[2023-04-28] MEDS: GLIMEPIRIDE 2 MG TABLET PO SCH (08:39)
[2023-04-28] MEDS: FLUCONAZOLE 100 MG TABLET PO SCH (08:39)
[2023-04-28] MEDS: OXYBUTYNIN XL 5 MG TABSR PO SCH (08:39)
[2023-04-28] MEDS: MEROPENEM 1 G in IV NORMAL SALINE 100 ML IV SCH ×2 (08:40→21:00)
[2023-04-28 08:50] LABS: BILIRUBIN,TOTAL 0.3 mg/dL (0.2-1.0); CREATININE 0.7 mg/dL (0.6-1.3); MAGNESIUM 1.8 mg/dL (1.8-2.4); PHOSPHOROUS 2.7 mg/dL (2.5-4.9); POTASSIUM 3.5 mmol/L (3.5-5.1); TOTAL PROTEIN, SERUM 4.8 g/dL (6.4-8.2)
[2023-04-28] MEDS: NEPRO (VANILLA) 237 ML CAN PO SCH (09:00)
[2023-04-28] MEDS: METOPROLOL SUCCINATE XL 25 MG TAB.SR.24H PO SCH (09:11)
[2023-04-28 11:32] VITALS: BP 123/63; TEMP 97.9; O2SAT 98
[2023-04-28] MEDS ORDERED: MAGNESIUM OXIDE 400 MG TABLET PO ONE (13:00)
[2023-04-28] MEDS: IV D5/ 0.9% NACL 1,000 ML IV PRN (13:34)
[2023-04-28] MEDS ORDERED: LIDOCAINE HCL 1% 20 ML VIAL ONE (14:09)
[2023-04-28 16:00] VITALS: BP 141/63; TEMP 98.7; O2SAT 99
[2023-04-28 20:00] VITALS: BP 131/68; TEMP 98.1; O2SAT 96
[2023-04-29 04:00] VITALS: BP 137/72; TEMP 98.2; O2SAT 95
[2023-04-29] MEDS: IV D5/ 0.9% NACL 1,000 ML IV PRN (04:53)
[2023-04-29] MEDS: BLOOD SUGAR DIAGNOSTIC 1 EACH STRIP VI SCH ×4 (05:44→23:59)
[2023-04-29 06:35] LABS: BASOPHILS % (AUTO) 0.2 % (0.0-2.0); EOSINOPHILS # (AUTO) 0.2 K/uL (0.0-0.7); EOSINOPHILS % (AUTO) 1.2 % (0.0-7.0); HEMATOCRIT 28.9 % (31.2-41.9); HEMOGLOBIN 9.7 g/dL (10.9-14.3); LYMPHOCYTES # (AUTO) 1.4 K/uL (0.8-4.8); LYMPHOCYTES % (AUTO) 8.1 % (20.5-51.5); MEAN CORPUSCULAR HEMOGLOBIN 30.6 uug (24.7-32.8); MEAN CORPUSCULAR HGB CONC 34 g/dL (32.3-35.6); MEAN CORPUSCULAR VOLUME 91.4 fL (75.5-95.3); MONOCYTES # (AUTO) 1.6 K/uL (0.1-1.30); NEUTROPHILS # (AUTO) 14.2 K/uL (1.8-8.9); NEUTROPHILS % (AUTO) 81.5 % (38.5-71.5); PLATELET COUNT (AUTO) 342 K/uL (179-408); RED BLOOD CELL COUNT(AUTO) 3.16 MIL/uL (3.63-4.92); RED CELL DISTRIBUTION WIDTH 13.8 % (12.3-17.7); WHITE BLOOD COUNT (AUTO) 17.5 K/uL (3.8-11.8)
[2023-04-29 07:01] LABS: DIFFERENTIAL COMMENT 1
[2023-04-29 07:05] LABS: CALCIUM 8.2 mg/dL (8.5-10.1); CARBON DIOXIDE 22 mmol/L (21-32); CHLORIDE 112 mmol/L (98-107); CREATININE 0.7 mg/dL (0.6-1.3); GLUCOSE 96 mg/dL (74-106); MAGNESIUM 1.9 mg/dL (1.8-2.4); PHOSPHOROUS 2.2 mg/dL (2.5-4.9); POTASSIUM 3.9 mmol/L (3.5-5.1); SODIUM SERUM 141 mmol/L (136-145); UREA NITROGEN, BLOOD 11 mg/dL (7-18)
[2023-04-29] MEDS: PROTEIN SUPPLEMENT (PROSTAT) 30 ML LIQUID PO SCH (08:00)
[2023-04-29] MEDS: NEPRO (VANILLA) 237 ML CAN PO SCH (08:30)
[2023-04-29] MEDS: FLUCONAZOLE 100 MG TABLET PO SCH (08:34)
[2023-04-29] MEDS: OXYBUTYNIN XL 5 MG TABSR PO SCH (08:35)
[2023-04-29] MEDS: GLIMEPIRIDE 2 MG TABLET PO SCH (08:35)
[2023-04-29] MEDS: METOPROLOL SUCCINATE XL 25 MG TAB.SR.24H PO SCH (08:46)
[2023-04-29] MEDS: MEROPENEM 1 G in IV NORMAL SALINE 100 ML IV SCH ×2 (08:47→17:28)
[2023-04-29] MEDS ORDERED: SWABABLE VALVE TRANSFER SET EA MC ONE (10:14)
[2023-04-29] MEDS ORDERED: IOHEXOL 300MG/ML 100 ML INFUS..BTL ONE (10:14)
[2023-04-29] MEDS ORDERED: IV NORMAL SALINE 250 ML IV ONE (10:15)
[2023-04-29 11:55] VITALS: BP 127/67; TEMP 98.2; O2SAT 97
[2023-04-29] MEDS: MEDIHONEY= THERAHONEY 1.5 OZ TUBE TOP SCH (15:00)
[2023-04-29 15:44] VITALS: BP 127/61; TEMP 98.1; O2SAT 97
[2023-04-29] MEDS ORDERED: NEUTRA PHOS PACKET PO ONE (15:45)
[2023-04-29 20:00] VITALS: BP 140/70; TEMP 99.9; O2SAT 100
[2023-04-30] MEDS: MEROPENEM 1 G in IV NORMAL SALINE 100 ML IV SCH ×3 (01:23→17:13)
[2023-04-30 04:00] VITALS: BP 143/68; TEMP 98.7; O2SAT 98
[2023-04-30] MEDS: IV D5/ 0.9% NACL 1,000 ML IV PRN (05:59)
[2023-04-30] MEDS: BLOOD SUGAR DIAGNOSTIC 1 EACH STRIP VI SCH ×3 (06:35→18:31)
[2023-04-30 08:19] LABS: CARBON DIOXIDE 22 mmol/L (21-32); CHLORIDE 109 mmol/L (98-107); CREATININE 0.6 mg/dL (0.6-1.3); GLUCOSE 100 mg/dL (74-106); PHOSPHOROUS 2.1 mg/dL (2.5-4.9); POTASSIUM 3.2 mmol/L (3.5-5.1); SODIUM SERUM 140 mmol/L (136-145); UREA NITROGEN, BLOOD 12 mg/dL (7-18)
[2023-04-30] MEDS: OXYBUTYNIN XL 5 MG TABSR PO SCH (08:33)
[2023-04-30] MEDS: PROTEIN SUPPLEMENT (PROSTAT) 30 ML LIQUID PO SCH (08:33)
[2023-04-30] MEDS: FLUCONAZOLE 100 MG TABLET PO SCH (08:34)
[2023-04-30] MEDS: GLIMEPIRIDE 2 MG TABLET PO SCH (08:34)
[2023-04-30 08:39] VITALS: BP 135/66; TEMP 98.7; O2SAT 98
[2023-04-30] MEDS: NEPRO (VANILLA) 237 ML CAN PO SCH (08:41)
[2023-04-30] MEDS: METOPROLOL SUCCINATE XL 25 MG TAB.SR.24H PO SCH (08:41)
[2023-04-30] MEDS: MEDIHONEY= THERAHONEY 1.5 OZ TUBE TOP SCH (08:43)
[2023-04-30] MEDS: POTASSIUM CHLORIDE 50 ML IV SCH ×4 (11:14→13:41)
[2023-04-30 11:46] VITALS: BP 135/63; TEMP 98.5; O2SAT 98
[2023-04-30 13:49] LABS: BASOPHILS # (AUTO) 0.1 K/UL (0.0-0.2); BASOPHILS % (AUTO) 0.3 % (0.0-2.0); EOSINOPHILS # (AUTO) 0.2 K/uL (0.0-0.7); HEMATOCRIT 28.4 % (31.2-41.9); HEMOGLOBIN 9.3 g/dL (10.9-14.3); LYMPHOCYTES # (AUTO) 1.3 K/uL (0.8-4.8); LYMPHOCYTES % (AUTO) 7.9 % (20.5-51.5); MEAN CORPUSCULAR HEMOGLOBIN 30.2 uug (24.7-32.8); MEAN CORPUSCULAR HGB CONC 33 g/dL (32.3-35.6); MONOCYTES # (AUTO) 1.6 K/uL (0.1-1.30); MONOCYTES % (AUTO) 9.6 % (0.0-11.0); NEUTROPHILS # (AUTO) 13.3 K/uL (1.8-8.9); NEUTROPHILS % (AUTO) 81.2 % (38.5-71.5); PLATELET COUNT (AUTO) 312 K/uL (179-408); RED BLOOD CELL COUNT(AUTO) 3.08 MIL/uL (3.63-4.92); RED CELL DISTRIBUTION WIDTH 14.4 % (12.3-17.7); WHITE BLOOD COUNT (AUTO) 16.4 K/uL (3.8-11.8)
[2023-04-30 13:52] LABS: DIFFERENTIAL COMMENT 1
[2023-04-30 16:23] VITALS: BP 117/54; TEMP 98.2; O2SAT 99
[2023-04-30] MEDS ORDERED: DEXTROSE 50% 50 ML DISP.SYRIN IV PRN (19:15)
[2023-04-30 20:00] VITALS: BP 121/64; TEMP 98.4; O2SAT 96
[2023-05-01] MEDS: MEROPENEM 1 G in IV NORMAL SALINE 100 ML IV SCH ×2 (00:35→23:05)
[2023-05-01] MEDS: BLOOD SUGAR DIAGNOSTIC 1 EACH STRIP VI SCH ×5 (00:43→23:13)
[2023-05-01 04:00] VITALS: BP 134/69; TEMP 99.2; O2SAT 96
[2023-05-01] MEDS ORDERED: MEROPENEM 1 G in IV NORMAL SALINE 100 ML IV SCH (07:45)
[2023-05-01 07:49] LABS: BASOPHILS # (AUTO) 0.1 K/UL (0.0-0.2); BASOPHILS % (AUTO) 0.3 % (0.0-2.0); EOSINOPHILS # (AUTO) 0.2 K/uL (0.0-0.7); EOSINOPHILS % (AUTO) 1.1 % (0.0-7.0); HEMATOCRIT 27.6 % (31.2-41.9); LYMPHOCYTES # (AUTO) 1.5 K/uL (0.8-4.8); LYMPHOCYTES % (AUTO) 8.1 % (20.5-51.5); MEAN CORPUSCULAR HEMOGLOBIN 29.8 uug (24.7-32.8); MEAN CORPUSCULAR HGB CONC 33 g/dL (32.3-35.6); MONOCYTES # (AUTO) 1.6 K/uL (0.1-1.30); MONOCYTES % (AUTO) 9.1 % (0.0-11.0); NEUTROPHILS # (AUTO) 14.6 K/uL (1.8-8.9); NEUTROPHILS % (AUTO) 81.4 % (38.5-71.5); PLATELET COUNT (AUTO) 237 K/uL (179-408); RED BLOOD CELL COUNT(AUTO) 3.03 MIL/uL (3.63-4.92); RED CELL DISTRIBUTION WIDTH 13.8 % (12.3-17.7); WHITE BLOOD COUNT (AUTO) 17.9 K/uL (3.8-11.8)
[2023-05-01 08:04] LABS: DIFFERENTIAL COMMENT 1
[2023-05-01 08:31] LABS: CALCIUM 7.8 mg/dL (8.5-10.1); CARBON DIOXIDE 21 mmol/L (21-32); CHLORIDE 111 mmol/L (98-107); GLUCOSE 100 mg/dL (74-106); MAGNESIUM 1.6 mg/dL (1.8-2.4); PHOSPHOROUS 1.7 mg/dL (2.5-4.9); POTASSIUM 3.8 mmol/L (3.5-5.1); SODIUM SERUM 140 mmol/L (136-145); UREA NITROGEN, BLOOD 10 mg/dL (7-18)
[2023-05-01] MEDS ORDERED: DEXTROSE 50% 50 ML DISP.SYRIN IV PRN (09:00)
[2023-05-01] MEDS: OXYBUTYNIN XL 5 MG TABSR PO SCH (09:01)
[2023-05-01] MEDS: FLUCONAZOLE 100 MG TABLET PO SCH (09:01)
[2023-05-01] MEDS: MEDIHONEY= THERAHONEY 1.5 OZ TUBE TOP SCH (09:02)
[2023-05-01] MEDS: GLIMEPIRIDE 2 MG TABLET PO SCH (09:02)
[2023-05-01 09:03] VITALS: BP 130/60; TEMP 98.9; O2SAT 96
[2023-05-01] MEDS: METOPROLOL SUCCINATE XL 25 MG TAB.SR.24H PO SCH (09:03)
[2023-05-01 11:42] VITALS: BP 118/69; TEMP 97.7; O2SAT 95
[2023-05-01] MEDS ORDERED: NEUTRA PHOS PACKET GT ONE (16:00)
[2023-05-01 16:14] VITALS: BP 119/62; TEMP 98; O2SAT 96
[2023-05-01] MEDS ORDERED: MAGNESIUM OXIDE 400 MG TABLET PO ONE (16:15)
[2023-05-01] MEDS: IV D5/ 0.9% NACL 1,000 ML IV PRN (17:59)
[2023-05-01 20:35] VITALS: BP 127/69; TEMP 98.5; O2SAT 97
[2023-05-02 04:42] VITALS: BP 118/66; TEMP 98.4; O2SAT 95
[2023-05-02] MEDS: BLOOD SUGAR DIAGNOSTIC 1 EACH STRIP VI SCH ×3 (05:52→17:17)
[2023-05-02 07:33] LABS: CALCIUM 7.8 mg/dL (8.5-10.1); CARBON DIOXIDE 22 mmol/L (21-32); CHLORIDE 109 mmol/L (98-107); CREATININE 0.9 mg/dL (0.6-1.3); GLUCOSE 99 mg/dL (74-106); MAGNESIUM 1.7 mg/dL (1.8-2.4); PHOSPHOROUS 2.3 mg/dL (2.5-4.9); POTASSIUM 3.7 mmol/L (3.5-5.1); SODIUM SERUM 137 mmol/L (136-145); UREA NITROGEN, BLOOD 10 mg/dL (7-18)
[2023-05-02] MEDS ORDERED: NALOXONE HCL 0.4 MG/ML AMPUL IV PRN ×2 (07:45→08:00)
[2023-05-02] MEDS ORDERED: FLUMAZENIL 0.5 MG/5 ML VIAL IVP PRN ×2 (07:45→08:00)
[2023-05-02] MEDS ORDERED: FENTANYL CITRATE 100 MCG/2 ML AMPUL IVP PRN ×2 (07:45→08:00)
[2023-05-02] MEDS ORDERED: MIDAZOLAM HCL 2 MG/2 ML VIAL IV PRN ×2 (07:45→08:00)
[2023-05-02 08:00] VITALS: BP 120/57; TEMP 98.3; O2SAT 95
[2023-05-02 08:01] LABS: BASOPHILS % (AUTO) 0.3 % (0.0-2.0); DIFFERENTIAL COMMENT 1; EOSINOPHILS # (AUTO) 0.2 K/uL (0.0-0.7); EOSINOPHILS % (AUTO) 1.5 % (0.0-7.0); HEMATOCRIT 25.2 % (31.2-41.9); HEMOGLOBIN 8.4 g/dL (10.9-14.3); LYMPHOCYTES # (AUTO) 1.4 K/uL (0.8-4.8); LYMPHOCYTES % (AUTO) 10.8 % (20.5-51.5); MEAN CORPUSCULAR HEMOGLOBIN 30.4 uug (24.7-32.8); MEAN CORPUSCULAR HGB CONC 33 g/dL (32.3-35.6); MEAN CORPUSCULAR VOLUME 90.9 fL (75.5-95.3); MONOCYTES # (AUTO) 1.4 K/uL (0.1-1.30); MONOCYTES % (AUTO) 10.6 % (0.0-11.0); NEUTROPHILS % (AUTO) 76.8 % (38.5-71.5); PLATELET COUNT (AUTO) 204 K/uL (179-408); RED BLOOD CELL COUNT(AUTO) 2.77 MIL/uL (3.63-4.92); RED CELL DISTRIBUTION WIDTH 13.9 % (12.3-17.7)
[2023-05-02 11:08] VITALS: BP 117/63; TEMP 97.6; O2SAT 98
[2023-05-02] MEDS: GLIMEPIRIDE 2 MG TABLET PO SCH (11:26)
[2023-05-02] MEDS: METOPROLOL SUCCINATE XL 25 MG TAB.SR.24H PO SCH (11:27)
[2023-05-02] MEDS: MEROPENEM 1 G in IV NORMAL SALINE 100 ML IV SCH (11:27)
[2023-05-02] MEDS: OXYBUTYNIN XL 5 MG TABSR PO SCH (11:27)
[2023-05-02] MEDS ORDERED: NEUTRA PHOS PACKET PO ONE (12:00)
[2023-05-02] MEDS ORDERED: MAGNESIUM OXIDE 400 MG TABLET PO ONE (12:00)
[2023-05-02 15:36] VITALS: BP 125/64; TEMP 98.8; O2SAT 94
[2023-05-02] MEDS: MEDIHONEY= THERAHONEY 1.5 OZ TUBE TOP SCH (17:17)
[2023-05-02 20:21] VITALS: BP 127/74; TEMP 98.4; O2SAT 95
[2023-05-03] MEDS: MEROPENEM 1 G in IV NORMAL SALINE 100 ML IV SCH ×3 (00:36→23:13)
[2023-05-03] MEDS: BLOOD SUGAR DIAGNOSTIC 1 EACH STRIP VI SCH ×5 (00:40→23:17)
[2023-05-03 04:25] VITALS: BP 114/62; TEMP 98.2; O2SAT 96
[2023-05-03 07:52] LABS: BASOPHILS % (AUTO) 0.2 % (0.0-2.0); EOSINOPHILS # (AUTO) 0.2 K/uL (0.0-0.7); EOSINOPHILS % (AUTO) 1.6 % (0.0-7.0); HEMOGLOBIN 8.6 g/dL (10.9-14.3); LYMPHOCYTES # (AUTO) 1.7 K/uL (0.8-4.8); LYMPHOCYTES % (AUTO) 13.2 % (20.5-51.5); MEAN CORPUSCULAR HEMOGLOBIN 29.9 uug (24.7-32.8); MEAN CORPUSCULAR HGB CONC 33 g/dL (32.3-35.6); MEAN CORPUSCULAR VOLUME 90.8 fL (75.5-95.3); MONOCYTES # (AUTO) 1.5 K/uL (0.1-1.30); MONOCYTES % (AUTO) 11.3 % (0.0-11.0); NEUTROPHILS # (AUTO) 9.7 K/uL (1.8-8.9); NEUTROPHILS % (AUTO) 73.7 % (38.5-71.5); PLATELET COUNT (AUTO) 203 K/uL (179-408); RED BLOOD CELL COUNT(AUTO) 2.86 MIL/uL (3.63-4.92); RED CELL DISTRIBUTION WIDTH 13.7 % (12.3-17.7); WHITE BLOOD COUNT (AUTO) 13.1 K/uL (3.8-11.8)
[2023-05-03 08:00] VITALS: BP 121/76; TEMP 99.2; O2SAT 98
[2023-05-03 08:20] LABS: DIFFERENTIAL COMMENT 1
[2023-05-03 09:00] LABS: CALCIUM 8.2 mg/dL (8.5-10.1); CARBON DIOXIDE 21 mmol/L (21-32); CHLORIDE 109 mmol/L (98-107); CREATININE 0.8 mg/dL (0.6-1.3); GLUCOSE 69 mg/dL (74-106); MAGNESIUM 1.8 mg/dL (1.8-2.4); PHOSPHOROUS 2.8 mg/dL (2.5-4.9); SODIUM SERUM 140 mmol/L (136-145); UREA NITROGEN, BLOOD 11 mg/dL (7-18)
[2023-05-03] MEDS: GLIMEPIRIDE 2 MG TABLET PO SCH (09:03)
[2023-05-03] MEDS: METOPROLOL SUCCINATE XL 25 MG TAB.SR.24H PO SCH (09:03)
[2023-05-03] MEDS: OXYBUTYNIN XL 5 MG TABSR PO SCH (09:03)
[2023-05-03 11:33] VITALS: BP 116/50; TEMP 98.1; O2SAT 94
[2023-05-03] MEDS: MEDIHONEY= THERAHONEY 1.5 OZ TUBE TOP SCH (15:13)
[2023-05-03 15:57] VITALS: BP 121/53; TEMP 98.6; O2SAT 94
[2023-05-03 19:30] VITALS: BP 121/60; TEMP 100.1; O2SAT 94
[2023-05-03] MEDS: ACETAMINOPHEN 325 MG TABLET PO PRN (20:54)
[2023-05-04 05:30] VITALS: BP 111/53; TEMP 98; O2SAT 95
[2023-05-04] MEDS: BLOOD SUGAR DIAGNOSTIC 1 EACH STRIP VI SCH ×4 (05:34→23:55)
[2023-05-04 06:21] LABS: BASOPHILS % (AUTO) 0.2 % (0.0-2.0); EOSINOPHILS # (AUTO) 0.1 K/uL (0.0-0.7); EOSINOPHILS % (AUTO) 1.3 % (0.0-7.0); HEMATOCRIT 24.7 % (31.2-41.9); HEMOGLOBIN 8.3 g/dL (10.9-14.3); LYMPHOCYTES # (AUTO) 1.6 K/uL (0.8-4.8); LYMPHOCYTES % (AUTO) 14.8 % (20.5-51.5); MEAN CORPUSCULAR HEMOGLOBIN 30.6 uug (24.7-32.8); MEAN CORPUSCULAR HGB CONC 34 g/dL (32.3-35.6); MEAN CORPUSCULAR VOLUME 90.8 fL (75.5-95.3); MONOCYTES # (AUTO) 1.4 K/uL (0.1-1.30); MONOCYTES % (AUTO) 13.2 % (0.0-11.0); NEUTROPHILS # (AUTO) 7.6 K/uL (1.8-8.9); NEUTROPHILS % (AUTO) 70.5 % (38.5-71.5); PLATELET COUNT (AUTO) 198 K/uL (179-408); RED BLOOD CELL COUNT(AUTO) 2.73 MIL/uL (3.63-4.92); RED CELL DISTRIBUTION WIDTH 13.6 % (12.3-17.7); WHITE BLOOD COUNT (AUTO) 10.8 K/uL (3.8-11.8)
[2023-05-04 06:25] LABS: DIFFERENTIAL COMMENT 1
[2023-05-04 06:53] LABS: CALCIUM 7.9 mg/dL (8.5-10.1); CARBON DIOXIDE 24 mmol/L (21-32); CHLORIDE 107 mmol/L (98-107); CREATININE 1.1 mg/dL (0.6-1.3); GLUCOSE 67 mg/dL (74-106); POTASSIUM 4.3 mmol/L (3.5-5.1); SODIUM SERUM 137 mmol/L (136-145); UREA NITROGEN, BLOOD 13 mg/dL (7-18)
[2023-05-04] MEDS: METOPROLOL SUCCINATE XL 25 MG TAB.SR.24H PO SCH (08:27)
[2023-05-04] MEDS: OXYBUTYNIN XL 5 MG TABSR PO SCH (08:27)
[2023-05-04] MEDS: GLIMEPIRIDE 2 MG TABLET PO SCH (08:27)
[2023-05-04] MEDS: MEDIHONEY= THERAHONEY 1.5 OZ TUBE TOP SCH (08:36)
[2023-05-04] MEDS: MEROPENEM 1 G in IV NORMAL SALINE 100 ML IV SCH ×2 (11:06→23:58)
[2023-05-04 11:39] VITALS: BP 111/52; TEMP 98.3; O2SAT 97
[2023-05-04 16:55] VITALS: BP 110/56; TEMP 97.1; O2SAT 94
[2023-05-04 19:50] VITALS: BP 127/64; TEMP 97.8; O2SAT 98
[2023-05-05 05:10] VITALS: BP 109/58; TEMP 98.7; O2SAT 95
[2023-05-05] MEDS: BLOOD SUGAR DIAGNOSTIC 1 EACH STRIP VI SCH ×4 (06:06→23:26)
[2023-05-05 07:53] LABS: BASOPHILS % (AUTO) 0.4 % (0.0-2.0); EOSINOPHILS # (AUTO) 0.2 K/uL (0.0-0.7); EOSINOPHILS % (AUTO) 2.2 % (0.0-7.0); HEMOGLOBIN 7.6 g/dL (10.9-14.3); LYMPHOCYTES # (AUTO) 1.3 K/uL (0.8-4.8); LYMPHOCYTES % (AUTO) 12.4 % (20.5-51.5); MEAN CORPUSCULAR HEMOGLOBIN 29.9 uug (24.7-32.8); MEAN CORPUSCULAR HGB CONC 33 g/dL (32.3-35.6); MEAN CORPUSCULAR VOLUME 90.1 fL (75.5-95.3); MONOCYTES # (AUTO) 1.1 K/uL (0.1-1.30); MONOCYTES % (AUTO) 10.8 % (0.0-11.0); NEUTROPHILS # (AUTO) 7.5 K/uL (1.8-8.9); NEUTROPHILS % (AUTO) 74.2 % (38.5-71.5); PLATELET COUNT (AUTO) 211 K/uL (179-408); RED BLOOD CELL COUNT(AUTO) 2.55 MIL/uL (3.63-4.92); RED CELL DISTRIBUTION WIDTH 13.8 % (12.3-17.7); WHITE BLOOD COUNT (AUTO) 10.1 K/uL (3.8-11.8)
[2023-05-05 07:58] LABS: DIFFERENTIAL COMMENT 1
[2023-05-05 08:02] LABS: CALCIUM 8.2 mg/dL (8.5-10.1); CARBON DIOXIDE 24 mmol/L (21-32); CHLORIDE 106 mmol/L (98-107); CREATININE 0.9 mg/dL (0.6-1.3); GLUCOSE 88 mg/dL (74-106); POTASSIUM 3.9 mmol/L (3.5-5.1); SODIUM SERUM 137 mmol/L (136-145); UREA NITROGEN, BLOOD 12 mg/dL (7-18)
[2023-05-05 08:08] LABS: MAGNESIUM 1.6 mg/dL (1.8-2.4); PHOSPHOROUS 3.1 mg/dL (2.5-4.9)
[2023-05-05] MEDS: METOPROLOL SUCCINATE XL 25 MG TAB.SR.24H PO SCH (08:10)
[2023-05-05] MEDS: OXYBUTYNIN XL 5 MG TABSR PO SCH (08:10)
[2023-05-05] MEDS: GLIMEPIRIDE 2 MG TABLET PO SCH (08:10)
[2023-05-05] MEDS: ARGININE/GLUTAMINE/CALCIUM BMB 1 EACH POWD.PACK PO SCH ×2 (08:11→16:02)
[2023-05-05] MEDS: MEDIHONEY= THERAHONEY 1.5 OZ TUBE TOP SCH (09:17)
[2023-05-05] MEDS: MEROPENEM 1 G in IV NORMAL SALINE 100 ML IV SCH ×2 (11:17→23:02)
[2023-05-05 11:53] VITALS: BP 137/59; TEMP 98.4; O2SAT 100
[2023-05-05] MEDS ORDERED: MAGNESIUM OXIDE 400 MG TABLET PO ONE (14:45)
[2023-05-05 16:38] VITALS: BP 118/51; TEMP 98.2; O2SAT 100
[2023-05-05 20:21] VITALS: BP 111/57; TEMP 98.4; O2SAT 99
[2023-05-06 04:00] VITALS: BP 128/60; TEMP 99; O2SAT 97
[2023-05-06] MEDS: BLOOD SUGAR DIAGNOSTIC 1 EACH STRIP VI SCH ×2 (05:01→12:15)
[2023-05-06 07:25] LABS: BASOPHILS # (AUTO) 0.1 K/UL (0.0-0.2); BASOPHILS % (AUTO) 0.8 % (0.0-2.0); EOSINOPHILS # (AUTO) 0.3 K/uL (0.0-0.7); EOSINOPHILS % (AUTO) 2.7 % (0.0-7.0); HEMATOCRIT 25.1 % (31.2-41.9); HEMOGLOBIN 8.2 g/dL (10.9-14.3); LYMPHOCYTES # (AUTO) 1.8 K/uL (0.8-4.8); LYMPHOCYTES % (AUTO) 15.3 % (20.5-51.5); MEAN CORPUSCULAR HEMOGLOBIN 29.9 uug (24.7-32.8); MEAN CORPUSCULAR HGB CONC 33 g/dL (32.3-35.6); MEAN CORPUSCULAR VOLUME 91.8 fL (75.5-95.3); MONOCYTES # (AUTO) 1.3 K/uL (0.1-1.30); MONOCYTES % (AUTO) 11.1 % (0.0-11.0); NEUTROPHILS % (AUTO) 70.1 % (38.5-71.5); PLATELET COUNT (AUTO) 275 K/uL (179-408); RED BLOOD CELL COUNT(AUTO) 2.73 MIL/uL (3.63-4.92); RED CELL DISTRIBUTION WIDTH 13.7 % (12.3-17.7); WHITE BLOOD COUNT (AUTO) 11.5 K/uL (3.8-11.8)
[2023-05-06 07:40] LABS: CALCIUM 8.2 mg/dL (8.5-10.1); CARBON DIOXIDE 24 mmol/L (21-32); CHLORIDE 106 mmol/L (98-107); CREATININE 0.7 mg/dL (0.6-1.3); GLUCOSE 81 mg/dL (74-106); POTASSIUM 3.8 mmol/L (3.5-5.1); SODIUM SERUM 138 mmol/L (136-145); UREA NITROGEN, BLOOD 9 mg/dL (7-18)
[2023-05-06 07:49] LABS: DIFFERENTIAL COMMENT 1
[2023-05-06 08:07] LABS: IRON, SERUM 15 ug/dL (50-175)
[2023-05-06 08:15] LABS: FERRITIN 578 ng/mL (8-252)
[2023-05-06 08:43] VITALS: BP 123/51; TEMP 98.7; O2SAT 96
[2023-05-06] MEDS: GLIMEPIRIDE 2 MG TABLET PO SCH (08:46)
[2023-05-06] MEDS: OXYBUTYNIN XL 5 MG TABSR PO SCH (08:46)
[2023-05-06] MEDS: METOPROLOL SUCCINATE XL 25 MG TAB.SR.24H PO SCH (08:47)
[2023-05-06] MEDS: MEDIHONEY= THERAHONEY 1.5 OZ TUBE TOP SCH (08:50)
[2023-05-06] MEDS: ARGININE/GLUTAMINE/CALCIUM BMB 1 EACH POWD.PACK PO SCH (08:50)
[2023-05-06 11:27] VITALS: BP 113/59; TEMP 98.1; O2SAT 95
[2023-05-06] MEDS ORDERED: MEROPENEM 1 G in IV NORMAL SALINE 100 ML IV SCH (14:00)
[2023-05-06 15:17] VITALS: BP 113/54; TEMP 98.2; O2SAT 97
== END 2023-05-06 15:48 | DRG 871 ==
LOC: ER 20:53 → TELE3 04-19 02:18 → MEDSURG3 04-21 10:35 → MED 04-23 07:47 → MEDSURG3 04-24 06:05
PROVIDERS: ADMIT Internal Medicine; ATTEND Internal Medicine
PROC: 0W9F30Z Drainage of Abdominal Wall with Drainage Device, Percutaneous Approach (ICD-10-PCS; principal; 2023-04-28)
PROC: 05HY33Z Insertion of Infusion Device into Upper Vein, Percutaneous Approach (ICD-10-PCS; 2023-04-29)
DX: A41.9 Sepsis, unspecified organism (principal); E43 Unspecified severe protein-calorie malnutrition; G92.8 Other toxic encephalopathy; R65.21 Severe sepsis with septic shock; N39.0 Urinary tract infection, site not specified; M60.08 Infective myositis, other site; N17.8 Other acute kidney failure; B37.49 Other urogenital candidiasis; D68.59 Other primary thrombophilia; E87.1 Hypo-osmolality and hyponatremia; K56.609 Unspecified intestinal obstruction, unspecified as to partial versus complete obstruction; E86.1 Hypovolemia; N73.9 Female pelvic inflammatory disease, unspecified; Z74.09 Other reduced mobility; K58.9 Irritable bowel syndrome, unspecified; E87.5 Hyperkalemia; E88.09 Other disorders of plasma-protein metabolism, not elsewhere classified; E78.5 Hyperlipidemia, unspecified; N13.9 Obstructive and reflux uropathy, unspecified; M35.3 Polymyalgia rheumatica; E11.649 Type 2 diabetes mellitus with hypoglycemia without coma; S81.811A Laceration without foreign body, right lower leg, initial encounter; W18.39XA Other fall on same level, initial encounter; Y92.003 Bedroom of unspecified non-institutional (private) residence as the place of occurrence of the external cause; Z96.643 Presence of artificial hip joint, bilateral; Z92.3 Personal history of irradiation; Z90.710 Acquired absence of both cervix and uterus; Z88.0 Allergy status to penicillin; Z85.3 Personal history of malignant neoplasm of breast; Z87.440 Personal history of urinary (tract) infections; Z79.899 Other long term (current) drug therapy; D64.9 Anemia, unspecified; M47.896 Other spondylosis, lumbar region; N32.81 Overactive bladder; I12.9 Hypertensive chronic kidney disease with stage 1 through stage 4 chronic kidney disease, or unspecified chronic kidney disease; N18.9 Chronic kidney disease, unspecified; E11.22 Type 2 diabetes mellitus with diabetic chronic kidney disease; D72.823 Leukemoid reaction
CPT/HCPCS: 36415; 70030-TC; 70450; 71045; 71250; 71260; 74018; 74250; 76641-TC; 76770; 82378; 82746; 82784; 83550; 83605; 83735; 83970; 84100; 84155; 84165; 84300; 84443; 84484; 85025; 85610; 85730; 86300; 86334; 87040; 87149; 88185; 93005; A4663; A6209; A6213; C1758; G0378; J0360; J0692; J0696; J1100; J1450; J1644; J1815; J2185; J2250; J3010; J3370; J3475; J3480; J3490; J7040; J7042; J7050; J7070; Q9963; Q9967